=== PATIENT | male | born 1955 | race Two or more races ===

== ENCOUNTER 2017-06-29 11:54 | Emergency (ER) | payer OTHER ==
[2017-06-29] MEDS ORDERED: NS 1,000 ML IV ONE (13:07)
[2017-06-29] MEDS ORDERED: ALBUTEROL 3 ML DEYVIAL IH ONE (13:08)
[2017-06-29 13:21] LABS: PLATELET COUNT 198 10^3/uL (150-400)
[2017-06-29 13:34] VITALS: PULSE 77; RESP 18
--- NOTE | 2017-06-29 14:06 | EDPHY ---
H & P Stated Complaint: FEVER, BODY ACHES, COUGH, INTERMITANT CP Time Seen by Provider: 06/29/17 12:56 HPI/ROS: CHIEF COMPLAINT: Possible flu HISTORY OF PRESENT ILLNESS: 62-year-old gentleman was history of diabetes and is dialysis dependent presents after receiving his dialysis today for evaluation regarding possible influenza. Patient has been sick for the last day with cough, fever, body aches. No nausea or vomiting. He has had some diarrhea. No chest pain. The patient has no pulmonary history. Nonsmoker. Denies shortness of breath, palpitations, or urinary complaints. Did undergo dialysis today as scheduled. REVIEW OF SYSTEMS: Aside from elements discussed in the HPI, a comprehensive 10-point review of systems was reviewed and is negative. PAST MEDICAL HISTORY: Dialysis dependent, diabetes mellitus, hypertension. SOCIAL HISTORY: Here with his . Andorran-speaking only. Net[employer] Administrator utilized in order to obtain history. VITAL SIGNS Reviewed by me. GENERAL: Well-developed, well-nourished, the Ling under multiple covers. Complaining of feeling chilled. HEENT: Atraumatic. Eyes: No icterus, no injection. Mouth: moist mucous membranes. No erythema or lesions. Neck: supple with no adenopathy. LUNGS: Very diminished breath sounds bilaterally. No wheezes rhonchi or rales. CARDIAC: Regular rate and rhythm. ABDOMEN: Soft, nontender, nondistended, bowel sounds normal. BACK: No CVA tenderness. EXTREMITIES: No trauma. No edema. Range of motion is normal throughout. NEURO: Alert and oriented, grossly nonfocal. SKIN: Warm and dry, no rash. PSYCHIATRIC: Normal mentation, no agitation. - Personal History Current Tetanus Diphtheria and Acellular Pertussis (TDAP): Yes Tetanus Vaccine Date: 2016 - Medical/Surgical History Hx Asthma: No Hx Chronic Respiratory Disease: No Hx Diabetes: Yes Hx Cardiac Disease: No Hx Renal Disease: Yes Hx Cirrhosis: No Hx Alcoholism: No Hx HIV/AIDS: No Hx Splenectomy or Spleen Trauma: No Other PMH: HTN, IDDM, renal failure with dialsis M-W-F, AV shunt placement left upper arm - Social History Smoking Status: Former smoker Constitutional: Initial Vital Signs Temperature (C) 37.5 C 06/29/17 12:04 Heart Rate 74 06/29/17 12:04 Respiratory Rate 20 06/29/17 12:04 Blood Pressure 165/59 H 06/29/17 12:04 O2 Sat (%) 90 L 06/29/17 12:04 O2 Delivery Mode Room Air Allergies/Adverse Reactions: No Known Allergies Allergy (Unverified 07/20/13 18:49) Home Medications: Medication Instructions Recorded Insulin Lispro [Humalog] 2 - 5 unit SQ AC 07/20/13 Metoprolol Succinate Xr [Toprol Xl 100 mg PO DAILY 07/20/13 100 mg (RX)] Rosuvastatin Calcium [Crestor 40mg 40 mg PO DAILY 07/20/13 (RX)] amLODIPine BESYLATE [Norvasc] 10 mg PO DAILY 07/20/13 Albuterol Hfa Anes Only [Proair 2 puffs IH QID #1 mdi 06/29/17 Hfa Icu (*)] Oseltamivir Phosphate [Tamiflu 75 75 mg PO BID #10 cap 06/29/17 mg (*)] Medical Decision Making - Diagnostics Imaging Results: Imaging Impressions Chest X-Ray 06/29/17 13:07 Impression: Peribronchial thickening, which could be related to mild fluid overload or bronchitis. Imaging: I viewed and interpreted images myself ED Course/Re-evaluation: 62-year-old male presenting from dialysis for body aches, fevers, chills, some shortness of breath, and mild cough. Patient IV placed and he received normal saline. He had a low-grade temperature here of 37.5 which increased to 39.1 during his emergency department course. Patient's influenza screen was positive for influenza A. He received Tylenol for his fever. He received Tamiflu. Chest x-ray does not straighten pneumonia. He received 2 L of normal saline, following which he was feeling improved. He was not hypoxic. He was anxious to be discharged home. He will continue his dialysis 3 times a week as previously scheduled. He understands the importance of fluids, rest, fever control, taking the Tamiflu. He will return to the emergency department if he is worsening. Differential Diagnosis: Differential diagnoses for the patient's symptom complex was considered including but not limited to viral syndrome, influenza, electrolyte abnormalities, pneumonia, sepsis. - Data Points Laboratory Results: Laboratory Results 06/29/17 13:15 06/29/17 13:15 06/29/17 06/29/17 06/29/17 13:15 13:15 12:10 WBC 9.11 10^3/uL 10^3/uL (3.80-9.50) RBC 3.34 10^6/uL L 10^6/uL (4.40-6.38) Hgb 10.9 g/dL L g/dL (13.7-17.5) Hct 30.3 % L % (40.0-51.0) MCV 90.7 fL fL (81.5-99.8) MCH 32.6 pg pg (27.9-34.1) MCHC 36.0 g/dL g/dL (32.4-36.7) RDW 12.8 % % (11.5-15.2) Plt Count 198 10^3/uL 10^3/uL (150-400) MPV 9.2 fL fL (8.7-11.7) Neut % (Auto) 84.1 % H % (39.3-74.2) Lymph % (Auto) 7.0 % L % (15.0-45.0) Grimes % (Auto) 8.0 % % (4.5-13.0) Eos % (Auto) 0.4 % L % (0.6-7.6) Baso % (Auto) 0.2 % L % (0.3-1.7) Nucleat RBC Rel Count 0.0 % % (0.0-0.2) Absolute Neuts (auto) 7.65 10^3/uL H 10^3/uL (1.70-6.50) Absolute Lymphs (auto) 0.64 10^3/uL L 10^3/uL (1.00-3.00) Absolute Monos (auto) 0.73 10^3/uL 10^3/uL (0.30-0.80) Absolute Eos (auto) 0.04 10^3/uL 10^3/uL (0.03-0.40) Absolute Basos (auto) 0.02 10^3/uL 10^3/uL (0.02-0.10) Absolute Nucleated RBC 0.00 10^3/uL 10^3/uL (0-0.01) Immature Gran % 0.3 % % (0.0-1.1) Immature Gran # 0.03 10^3/uL 10^3/uL (0.00-0.10) Sodium 139 mEq/L mEq/L (135-145) Potassium 4.1 mEq/L mEq/L (3.5-5.2) Chloride 93 mEq/L L mEq/L (97-110) Carbon Dioxide 33 mEq/l H mEq/l (22-31) Anion Gap 13 mEq/L mEq/L (8-16) BUN 17 mg/dL mg/dL (7-23) Creatinine 3.0 mg/dL H mg/dL (0.7-1.3) Estimated GFR 21 Glucose 218 mg/dL H mg/dL (70-100) Calcium 8.7 mg/dL mg/dL (8.5-10.4) Nasal Influenza A PCR FLU A DETECTED (NEGATIVE) Nasal Influenza B PCR NEGATIVE FOR FLU B (NEGATIVE) Medications Given: Discontinued Medications Acetaminophen (Tylenol) 1,000 mg PO EDNOW ONE Stop: 06/29/17 15:53 Last Admin: 06/29/17 15:55 Dose: 1,000 mg Albuterol (Proventil Neb) 3 ml IH EDNOW ONE Stop: 06/29/17 13:09 Last Admin: 06/29/17 13:19 Dose: 3 ml Sodium Chloride (Ns) 1,000 mls @ 0 mls/hr IV ONCE ONE; Wide Open PRN Reason: Protocol Stop: 06/29/17 13:08 Last Admin: 06/29/17 13:19 Dose: 1,000 mls Oseltamivir Phosphate (Tamiflu) 75 mg PO EDNOW ONE Stop: 06/29/17 14:59 Last Admin: 06/29/17 15:44 Dose: 75 mg Departure - Departure Disposition: Home, Routine, Self-Care Clinical Impression: Influenza A Condition: Good Instructions: How to Use a Metered-Dose Inhaler (ED), Influenza (ED), Acute Bronchitis (ED) Additional Instructions: It Is very important that he get plenty of rest and drink plenty of fluids. Please control your fever with Tylenol or ibuprofen. Adult Pain & Fever Control: We recommend Acetaminophen (Tylenol) and Ibuprofen (Motrin,Advil) for pain and fever control. When fever is high or pain severe, both drugs can be used at the same time, but at different intervals. Please note the time differences. Your dose is: Acetaminophen 650 mg every 4 to 6 hours Ibuprofen 400mg every 6-8 hours with food Please take the Tamiflu as directed. 75 mg by mouth 2 times a day for 5 days. Es muy importante que descance suficiente y chacho muchos liquidos. Por favor controle carroll fiebre con Tylenol o ibuprofen. Control De Dolor y Fiebre: Les recomendamos Acetaminofina (Tylenol) y Ibuprofeno (Motrin, Advil) para dolor y control de la fiebre. Cuando la fiebre es buffy o el dolor es catherine, ambas drogas puede ser usadas a la misma vez. Por favor tenga en cuenta la diferencia de horarios en el cual deben ser tomadas. Carroll dosis es: Acetaminofina [650]mg cada 4-6 horas Ibuprofeno [400]mg cada 6-8 horas con comida No tome Acetaminofina con Hydrocodone (Vicodin, Lortab) o Oxycodone (Percocet. Estas medicinas tambien contienen Acetaminofina. No mas de 4000mg de Acetaminofina deben ser tomados en 24 horas. Por favor tome el Tamiflu a tong se le miller indicado. 75 mg en forma oral 2 veces al jessy por 5 mcleod. Referrals: Nadia Calabrese [Primary Care Provider] - As per Instructions Prescriptions: Albuterol Hfa Anes Only [Proair Hfa Icu (*)] 2 puffs IH QID #1 mdi Oseltamivir Phosphate [Tamiflu 75 mg (*)] 75 mg PO BID #10 cap Print Language: Andorran
[2017-06-29] MEDS ORDERED: OSELTAMIVIR PHOSPHATE 75 MG CAP PO ONE (14:58)
[2017-06-29 15:51] VITALS: BP 171/64; TEMP 102.4; O2SAT 92
[2017-06-29] MEDS ORDERED: ACETAMINOPHEN 500 MG TAB PO ONE (15:52)
== END 2017-06-29 16:00 | disposition home or self-care (01) ==
DX: J10.1 Influenza due to other identified influenza virus with other respiratory manifestations (principal); I12.0 Hypertensive chronic kidney disease with stage 5 chronic kidney disease or end stage renal disease; N18.6 End stage renal disease; E11.9 Type 2 diabetes mellitus without complications; E86.9 Volume depletion, unspecified; Z79.4 Long term (current) use of insulin; Z99.2 Dependence on renal dialysis; Z87.891 Personal history of nicotine dependence
CPT/HCPCS: 71046; 96360; 99284; J7613